=== PATIENT | female | born 1975 | race Caucasian/White ===

== ENCOUNTER 2019-11-21 21:43 | Emergency (ER) | payer SELFPAY ==
[~2019-11-21] VITALS: Ht 152.4 cm; Wt 63.0 kg
[2019-11-21 23:02] LABS: CLARITY URINE CLEAR (CLEAR); COLOR URINE YELLOW (YELLOW); KETONES URINE NEGATIVE (NEGATIVE); LEUKOCYTE ESTERASE URINE NEGATIVE (NEGATIVE); NITRITE URINE NEGATIVE (NEGATIVE); OCCULT BLOOD URINE NEGATIVE (NEGATIVE); PROTEIN URINE NEGATIVE (NEGATIVE); SPECIFIC GRAVITY URINE 1.024 (1.005-1.030); UROBILINOGEN URINE 0.2 E.U./dL (0.2-1.0)
[2019-11-21 23:05] VITALS: BP 125/84
[2019-11-22] MEDS ORDERED: IPRATROPIUM/ALBUTEROL 0.5-3(2.5)MG/3ML NEB HHN ONE (01:00)
== END 2019-11-21 23:09 | disposition home or self-care (01) ==
LOC: ER 21:43
DX: U07.1 COVID-19 (principal)
CPT/HCPCS: 81003; 81025; 87635; 99283

== ENCOUNTER → 2020-06-30 | Outpatient (CLI) | payer BC ==
[2020-06-30 12:22] LABS: BASOPHILS % 0.3 % (0.0-2.0); EOSINOPHILS % 3.7 % (0.0-5.0); HEMATOCRIT. 40.6 % (36.0-48.0); HEMOGLOBIN. 14.2 g/dL (12.0-16.0); LYMPHOCYTES % 25.4 % (20.0-50.0); MEAN CORPUSCULAR HEMOGLOBIN 31.1 pg (28.0-32.0); MEAN CORPUSCULAR VOLUME 88.7 fL (81.0-99.0); MEAN PLATELET VOLUME 8.8 fl (7.4-10.4); MONOCYTES % 4.6 % (2.0-8.0); PLATELET 266 x1000/uL (130-400); RED BLOOD CELL COUNT 4.57 mill/uL (4.2-5.4); RED CELL DISTRIBUTION WIDTH 12.6 % (11.6-14.6)
[2020-06-30 12:27] LABS: CLARITY URINE CLEAR (CLEAR); COLOR URINE YELLOW (YELLOW); KETONES URINE NEGATIVE (NEGATIVE); LEUKOCYTE ESTERASE URINE NEGATIVE (NEGATIVE); NITRITE URINE NEGATIVE (NEGATIVE); OCCULT BLOOD URINE NEGATIVE (NEGATIVE); PH URINE 6.5 (4.5-8.0); PROTEIN URINE NEGATIVE (NEGATIVE); SPECIFIC GRAVITY URINE 1.014 (1.005-1.030); UROBILINOGEN URINE 0.2 E.U./dL (0.2-1.0)
== END | disposition home or self-care (01) ==
LOC: LAB 11:36
PROVIDERS: ATTEND Obstetrics & Gynecology Obstetrics
DX: N30.20 Other chronic cystitis without hematuria (principal); R68.89 Other general symptoms and signs; N91.2 Amenorrhea, unspecified; Z12.31 Encounter for screening mammogram for malignant neoplasm of breast
CPT/HCPCS: 36415; 81003; 82378; 84702; 85025; 86304; 86305

== ENCOUNTER → 2020-07-07 | Outpatient (CLI) | payer BC ==
[~2020-07-07] MED LIST: AMLO5TAB88 PO
== END | disposition home or self-care (01) ==
LOC: LAB 10:38
PROVIDERS: ATTEND Obstetrics & Gynecology Obstetrics
DX: Z01.812 Encounter for preprocedural laboratory examination (principal); Z20.828 Contact with and (suspected) exposure to other viral communicable diseases
CPT/HCPCS: 87426

== ENCOUNTER 2020-07-09 06:12 | Inpatient (IN) | payer BC ==
[~2020-07-09] VITALS: Ht 134.6 cm; Wt 64.4 kg
[2020-07-09 06:53] LABS: BASOPHILS % 0.5 % (0.0-2.0); EOSINOPHILS % 5.6 % (0.0-5.0); HEMATOCRIT. 38.3 % (36.0-48.0); HEMOGLOBIN. 13.4 g/dL (12.0-16.0); LYMPHOCYTES % 31.2 % (20.0-50.0); MEAN CORPUSCULAR HEMOGLOBIN 30.9 pg (28.0-32.0); MEAN CORPUSCULAR VOLUME 88.5 fL (81.0-99.0); MEAN PLATELET VOLUME 8.8 fl (7.4-10.4); MONOCYTES % 6.3 % (2.0-8.0); NEUTROPHILS % 56.4 % (40.0-76.0); PLATELET 237 x1000/uL (130-400); RED BLOOD CELL COUNT 4.33 mill/uL (4.2-5.4); RED CELL DISTRIBUTION WIDTH 12.9 % (11.6-14.6)
[2020-07-09 07:06] LABS: CLARITY URINE CLEAR (CLEAR); COLOR URINE YELLOW (YELLOW); KETONES URINE NEGATIVE (NEGATIVE); LEUKOCYTE ESTERASE URINE NEGATIVE (NEGATIVE); NITRITE URINE NEGATIVE (NEGATIVE); OCCULT BLOOD URINE NEGATIVE (NEGATIVE); PH URINE 7.5 (4.5-8.0); PROTEIN URINE NEGATIVE (NEGATIVE); SPECIFIC GRAVITY URINE 1.012 (1.005-1.030)
[2020-07-09 07:11] LABS: UCG SCREEN NEGATIVE
[2020-07-09 07:14] LABS: CHLORIDE 109 mEq/L (98-107)
[2020-07-09] MEDS ORDERED: LACTATED RINGERS 1,000 ML IV SCH ×2 (07:30→12:45)
[2020-07-09] MEDS ORDERED: METHYLENE BLUE 50 MG/10 ML AMP IV ONE (09:40)
[2020-07-09] MEDS ORDERED: VASOPRESSIN 20 UNIT/ML 1ML ONE (09:41)
[2020-07-09] MEDS ORDERED: ACETAMINOPHEN 500MG TABLET ONE ×2 (09:50→09:51)
[2020-07-09] MEDS ORDERED: MIDAZOLAM HCL 2 MG/2 ML VIAL ONE (09:54)
[2020-07-09] MEDS ORDERED: METOCLOPRAMIDE HCL 10MG/2ML VIAL ONE (09:54)
[2020-07-09] MEDS ORDERED: ONDANSETRON HCL 4MG/2ML INJ ONE (09:54)
[2020-07-09] MEDS ORDERED: PROPOFOL 200MG/20ML VIAL IV ONE (09:56)
[2020-07-09] MEDS ORDERED: FENTANYL CITRATE/PF 50MCG/ML 2ML VIAL ONE (09:57)
[2020-07-09] MEDS ORDERED: SUCCINYLCHOLINE CHLORIDE 200MG/10ML IV ONE (09:58)
[2020-07-09] MEDS ORDERED: LIDOCAINE HCL/PF 1% 10 MG/ML 5ML VIAL ONE (10:02)
[2020-07-09] MEDS ORDERED: VECURONIUM BROMIDE 10 MG/VIAL IV ONE (10:06)
[2020-07-09] MEDS ORDERED: CEFAZOLIN SODIUM 1000MG/VIAL ONE (10:10)
[2020-07-09] MEDS ORDERED: NEOSTIGMINE METHYLSULFATE 1MG/ML 10 ML VIAL ONE (10:47)
[2020-07-09] MEDS ORDERED: GLYCOPYRROLATE 0.2 MG/ML 2ML VIAL ONE (10:48)
[2020-07-09] MEDS ORDERED: KETOROLAC 30MG/ML VIAL ONE (10:50)
[2020-07-09] MEDS ORDERED: HYDROMORPHONE HCL/PF 2MG/ML (OR) ONE (11:16)
[2020-07-09] MEDS ORDERED: DEXAMETHASONE 4MG/ML 1ML VIAL ONE (11:51)
[2020-07-09] MEDS ORDERED: HYDROMORPHONE PCA 10MG/50ML IV PRN (12:30)
[2020-07-09] MEDS ORDERED: ONDANSETRON INJ IV PRN (12:30)
[2020-07-09] MEDS ORDERED: DIPHENHYDRAMINE INJ IV PRN (12:30)
[2020-07-09] MEDS ORDERED: NALOXONE INJ IV PRN (12:30)
[2020-07-09] MEDS ORDERED: IBUPROFEN 800MG TABLET PO PRN (12:45)
[2020-07-09] MEDS: HYDROMORPHONE HCL/PF 2MG/ML CPJ IV PRN ×2 (13:07→13:22)
[2020-07-09 15:30] VITALS: BP 125/74
[2020-07-09 16:25] VITALS: BP 125/74
[2020-07-09 20:00] VITALS: BP 103/61
[2020-07-10] VITALS: BP 111/53
[2020-07-10 04:00] VITALS: BP 105/61
[2020-07-10 07:44] LABS: BASOPHILS % 0.1 % (0.0-2.0); HEMATOCRIT. 36.4 % (36.0-48.0); HEMOGLOBIN. 12.7 g/dL (12.0-16.0); LYMPHOCYTES % 9.2 % (20.0-50.0); MEAN CORPUSCULAR HEMOGLOBIN 30.7 pg (28.0-32.0); MEAN CORPUSCULAR VOLUME 88.2 fL (81.0-99.0); MEAN PLATELET VOLUME 9.7 fl (7.4-10.4); MONOCYTES % 6.5 % (2.0-8.0); NEUTROPHILS % 84.2 % (40.0-76.0); PLATELET 250 x1000/uL (130-400); RED BLOOD CELL COUNT 4.12 mill/uL (4.2-5.4); RED CELL DISTRIBUTION WIDTH 12.8 % (11.6-14.6)
[2020-07-10 08:00] VITALS: BP 110/60
[2020-07-10 12:00] VITALS: BP 102/58
[2020-07-10 15:01] VITALS: BP 102/58
[2020-07-10 16:00] VITALS: BP 100/58
== END 2020-07-10 16:29 | disposition home or self-care (01) | DRG 743 ==
LOC: OR 06:12 → 6EST 06:13
PROVIDERS: ADMIT Obstetrics & Gynecology Obstetrics; ATTEND Obstetrics & Gynecology Obstetrics
PROC: 0DNW0ZZ Release Peritoneum, Open Approach (ICD-10-PCS; principal; 2020-07-09)
PROC: 0UT90ZZ Resection of Uterus, Open Approach (ICD-10-PCS; 2020-07-09)
PROC: 0JN80ZZ Release Abdomen Subcutaneous Tissue and Fascia, Open Approach (ICD-10-PCS; 2020-07-09)
PROC: 0UB70ZZ Excision of Bilateral Fallopian Tubes, Open Approach (ICD-10-PCS; 2020-07-09)
PROC: 0UB10ZZ Excision of Left Ovary, Open Approach (ICD-10-PCS; 2020-07-09)
PROC: 06183J4 Bypass Portal Vein to Hepatic Vein with Synthetic Substitute, Percutaneous Approach (ICD-10-PCS; 2020-07-09)
DX: D25.9 Leiomyoma of uterus, unspecified (principal); G89.29 Other chronic pain; K66.0 Peritoneal adhesions (postprocedural) (postinfection); Z98.51 Tubal ligation status
CPT/HCPCS: 36415; 80048; 81003; 81025; 85025; 86850; 86900; 88302; 93005; J0330; J0690; J1100; J1170; J1885; J2250; J2405; J2704; J2710; J2765; J3010; J3490; Q9968